=== PATIENT | female | born 1985 | race Two or more races ===

== ENCOUNTER 2019-06-07 22:07 | Emergency (ER) | payer MEDICAID ==
[~2019-06-07] VITALS: Ht 167.6 cm; Wt 65.8 kg
[2019-06-07 22:10] VITALS: BP 113/68
--- NOTE | 2019-06-07 22:10 | NUR ---
ED Nurse Note: Pt ambulated to ED from home c/o 12/08 headache for several hours, denies injury or N/V. Pt is A&Ox4, VSS. ERMD at bedside
--- NOTE | 2019-06-07 22:37 | Emergency Room Report ---
History of Present Illness General Chief Complaint: Headache Source: Patient Present Illness HPI Disclaimer: Please note that this report is being documented using DRAGON technology. This can lead to erroneous entry secondary to incorrect interpretation by the dictating instrument. HPI: 33-year-old otherwise healthy female presents for evaluation of headache. Symptoms began approximately 5 hours ago. The patient states she was awakened from a nap with a 10/10 intensity throbbing bilateral headache that is centered in the occipital region now moved forward around the eyes. She notes is throbbing, slight blurred vision but denies double vision. Denies changes in coordination or balance. Denies head trauma. No prior history of headaches or migraines. LMP was approximately 1 month ago. Denies nuchal rigidity, fever, chills, cough, sore throat, vomiting, nausea or diarrhea. Headache is slightly better now, 7/10 though she states it ramps up in waves going back to 10/10. She took ibuprofen prior to arrival without improvement in symptoms. Never experienced a similar headache like this. PMH: Denies PSH: Denies Allergies: Denies Social Hx: Denies Allergies: Coded Allergies: No Known Allergies (Unverified , 06/07/19) COVID-19 Screening Contact w/high risk pt: No Recent Travel to affected area: No Experienced COVID-19 symptoms?: No Patient History Last Menstrual Period: 05/14/19 Now: No : 2 Para: 2 Nursing Documentation-PMH Past Medical History: No Stated History Review of Systems All Other Systems: negative except mentioned in HPI Physical Exam Vital Signs Date Time Temp Pulse Resp B/P (MAP) Pulse Ox O2 Delivery O2 Flow Rate FiO2 06/07/19 22:09 98.1 66 16 113/68 (83) 98 Room Air General: Awake and alert, no acute distress HEENT: NC/AT. EOMI. PERRLA. Visual nur are full. No nystagmus. Facial expressions are symmetrical. No facial droop. Cardiovascular: RRR. S1 and S2 normal. No murmur appreciated Resp: Normal work of breathing. No cough, wheezing or crackles appreciated Abdomen: Abdomen is soft, nondistended. Nontender Skin: Intact. No abrasions, laceration or rash over the exposed skin MSK: Normal tone and bulk. Moving all extremities. No obvious deformity. There is no drift in the upper or lower extremities bilaterally. Neuro: Awake and alert. Mentating appropriately. Facial expression symmetrical. No dysarthria, no ataxia on ccoalr-optm-wyjjlw testing. Sensation to light touch is intact over the upper and lower extremities. The patient has intact speech with good comprehension. Fund of knowledge is full. No aphasia, no neglect. NIH: 0 Medical Decision Making Diagnostic Impression: Primary Impression: Headache ER Course This a 33-year-old female presenting for evaluation of sudden onset headache awakening her from sleep approximately 5 hours ago. Differential includes was not limited to generalized headache, migraine headache, tension headache, cluster headache, intracranial mass, intracranial bleed. Patient's physical exam is reassuring though there are description of sudden onset severe occipital headache is concerning for intracranial bleed. CT head returned within normal limits, no evidence of bleed. Headache is improving. Urine hCG was negative. Likely either a migraine or generalized headache. Will prescribe Imitrex and Excedrin to use as needed and refer to PMD for outpatient follow-up. We discussed reasons to return to the emergency department. She understands and agrees with treatment plan will be discharged home. CT/MRI/US Diagnostic Results CT/MRI/US Diagnostic Results : Impression Preliminary Findings Only See Final Report For Complete Findings CT HEAD Without Contrast: No ICH, mass effect or edema. No evidence of acute cortical stroke. Visualized sinuses and mastoid air cells are clear. Radiologist: Tung Cr M.D. Study ready at 23:00 and initial results transmitted at 23:05 Last Vital Signs Date Time Temp Pulse Resp B/P (MAP) Pulse Ox O2 Delivery O2 Flow Rate FiO2 06/07/19 22:09 98.1 66 16 113/68 (83) 98 Room Air Disposition: HOME, SELF-CARE Condition: Stable Scripts Ibuprofen* (MOTRIN*) 600 Mg Tablet 600 MG ORAL Q6H PRN for For Pain, #30 TAB 0 Refills Prov: Rosendo Jung MD 06/07/19 Aspirin/Acetaminophen/Caffeine (EXCEDRIN MIGRAINE CAPLET) 1 Each Tablet 1 EACH PO TID for 5 Days, #20 TAB Prov: Rosendo Jung MD 06/07/19 Sumatriptan Succinate* (IMITREX*) 50 Mg Tablet 50 MG ORAL DAILY PRN MIGRAINE PRN for For Headache, #10 TAB Prov: Rosendo Jung MD 06/07/19 Referrals: NOT CHOSEN IPA/,REFERRING (PCP) Rosendo Jung MD Jun 07, 2019 22:37
[2019-06-07] MEDS ORDERED: Acetaminophen 500mg (ES) tab ORAL ONE (22:45)
[2019-06-07] MEDS ORDERED: IMITREX50 MG ORAL (22:59)
[2019-06-07] MEDS ORDERED: EXCEDRIN MIGRA1 EAC1 PO (22:59)
[2019-06-07] MEDS ORDERED: IBUPROFEN600 M1 ORAL (22:59)
--- NOTE | 2019-06-07 23:05 | Diagnostic Imaging Report ---
Indications: Head pain, 9 out of 10 in severity Technique: Spiral acquisitions obtained through the brain. Angled axial and coronal 5 x 5 mm slices were reconstructed. Total dose length product 992 mGycm. CTDI vol(s) 53 mGy. Dose reduction achieved using automated exposure control Comparison: None. Findings: There is a calcification in the right anterior parietal lobe near the vertex at the kimball-white junction. No acute intracranial hemorrhage or edema. No mass effect nor midline shift. Normal kimball-white differentiation. Normal size ventricles and extra axial CSF spaces. The calvarium is intact. The mastoids are clear. 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 The CT scanner at [facility] is accredited by the [employer] and the scans are performed using protocols designed to limit radiation exposure to as low as reasonably achievable to attain images of sufficient resolution adequate for diagnostic evaluation.
[2019-06-07 23:10] VITALS: BP 113/68
--- NOTE | 2019-06-07 23:10 | NUR ---
ER DISCHARGE NOTE: Patient is cleared to be discharged per ERMD, pt is aox4, on room air, with stable vital signs. pt was given dc and prescription instructions, pt was able to verbalize understanding, pt id band removed. pt is able to ambulate with steady gait. pt took all belongings.
== END 2019-06-07 23:10 | disposition home or self-care (01) ==
LOC: EMR 22:33
DX: R51 Headache (principal)
CPT/HCPCS: 70450; 81025; Z7502; 99284